=== PATIENT | male | born 1995 | race African-American/Black ===

== ENCOUNTER 2024-09-03 09:53 | Emergency (ER) | payer OTHER ==
[2024-09-03] MEDS ORDERED: Bacitracin 1 PK ONE (11:51)
== END 2024-09-03 12:04 | disposition home or self-care (01) ==
LOC: CSHERS 09:53
DX: S80.212A Abrasion, left knee, initial encounter (principal); Z55.0 Illiteracy and low-level literacy; I10 Essential (primary) hypertension; W19.XXXA Unspecified fall, initial encounter
CPT/HCPCS: 99283